=== PATIENT | female | born 1990 | race Caucasian/White ===

== ENCOUNTER → 2023-06-05 13:52 | Outpatient (CLI) | payer BC, SELFPAY ==
--- NOTE | ~2023-06-05 | US_ITS ---
EXAMINATION: US OB <= 14 weeks fetus DATE: 06/05/2023 14:12 INDICATION: Spotting complicating . First trimester. TECHNIQUE: Real-time transabdominal pelvic ultrasound was performed. COMPARISON: None. FINDINGS: The uterus measures 10.6 x 5.7 x 7.0 cm. There is an intrauterine gestational sac. A yolk sac is christine ntified. The crown rump length measures 2.3 cm, which correlates with an estimated gestational age of 9 weeks and 0 day(s) (+/-) 6 day(s). heart motion is identified measuring 172 beats pe r minute (bpm) by M-mode Doppler. The ovaries are not visualized. There is no free fluid in the pelvi s. IMPRESSION: 1. Single living intrauterine gestation with estimated date of delivery of 01/08/2024. Reviewed, dictated and finalized at location A. AND BEVERAGE ATTENDANT IMPRESSION: 1. Single living intrauterine gestation with estimated date of delivery of 12/22.
== END ==
PROVIDERS: PCP Advanced Practice Midwife; Visit Provider Advanced Practice Midwife
DX: O26.851 Spotting complicating pregnancy, first trimester (principal); Z3A.00 Weeks of gestation of pregnancy not specified
CPT/HCPCS: 76801

== ENCOUNTER → 2023-08-24 09:22 | Outpatient (CLI) | payer BC, SELFPAY ==
--- NOTE | ~2023-08-24 | US_ITS ---
EXAMINATION: US OB /maternal detail DATE: 08/24/2023 10:00 INDICATION: Encounter for screening, unspecified. TECHNIQUE: Real-time pelvic ultrasound was performed. COMPARISON: Ultrasound 06/05/2023 FINDINGS: There is a single living fetus in breech presentation. The placenta is anterior, 2.0 cm from the cer vix. The cervical length is 3.5 cm on transabdominal images, which is normal. heart rate is 161 beats per minute (bpm). The amniotic fluid volume is subjectively normal. The following biometric data were obtained: Biparietal diameter (BPD): 4.9 cm; head circumference (HC): 18.1 cm; abdominal circumference (AC): 15 .7 cm; femur length (FL): 3.1 cm. These measurements are concordant. Estimated weight is 344 g +/- 52 g, which correlates with the 37th percentile when 01/08/24 is u sed as estimated date of delivery. As single measurements, these parameters are each equal to the following estimated gestational ages: BPD: 20 weeks 6 days. HC: 20 weeks 4 days. AC: 20 weeks 6 days. FL: 19 weeks 4 days. estimated gestational age based solely on measurements from this exam is 20 weeks 3 days +/- 1 weeks 3 days. The cerebral ventricles, cerebellum, cisterna magna, nuchal fold, lip, and visualized portions of the spine are normal. The heart is normal. The diaphragm, stomach, kidneys, and bladder are normal. Ther e are two umbilical arteries to yield a 3-vessel cord. The cord insertion is normal. IMPRESSION: 1. Single living fetus in breech presentation. 2. Estimated weight is 344 g +/- 52 g, which correlates with the 37th percentile when 01/08/24 is used as estimated date of delivery. This date was set by ultrasound on 06/05/2023. 3. Normal anatomic survey. Reviewed, dictated and finalized at location A. [employer] SPEC IMPRESSION: 1. Single living fetus in breech presentation. 2. Estimated weight is 344 g +/- 52 g, which correlates with the 37th pe rcentile when 01/08/24 is used as estimated date of delivery. This date was set by ultrasound on 06/05/2023. 3. Normal anatomic survey.
== END ==
PROVIDERS: PCP Advanced Practice Midwife; Visit Provider Advanced Practice Midwife
DX: Z36.9 Encounter for antenatal screening, unspecified (principal); Z3A.20 20 weeks gestation of pregnancy
CPT/HCPCS: 76805

== ENCOUNTER → 2023-09-22 08:40 | Outpatient (CLI) | payer BC, SELFPAY ==
--- NOTE | ~2023-09-22 | US_ITS ---
EXAMINATION: US OB follow up DATE: 09/22/2023 09:01 INDICATION: Low-lying placenta during second trimester TECHNIQUE: Real-time ultrasound of the pelvis was performed. The interpreting radiologist was not pre sent for the study. COMPARISON: None. FINDINGS: There is a single living fetus in vertex presentation. The placenta is anterior which appears to ext end to within 5 mm of but not across the internal cervical os. heart rate is 146 beats per drew te (bpm). Cervical length measures approximately 4.7 cm with no funneling. The amniotic fluid bone is subjectively normal. IMPRESSION: 1. Single living fetus in vertex presentation with heart rate of 146 bpm. 2. Anterior placenta which is low lying extending to within 5 mm but not across the internal cervical os. Reviewed, dictated and finalized at location B. IN[employer]PAREL FOLDER
== END ==
PROVIDERS: PCP Advanced Practice Midwife; Visit Provider Advanced Practice Midwife
DX: O44.42 Low lying placenta NOS or without hemorrhage, second trimester (principal); Z3A.00 Weeks of gestation of pregnancy not specified
CPT/HCPCS: 76816

== ENCOUNTER 2023-10-19 08:45 | Outpatient (CLI) | payer BC, SELFPAY ==
--- NOTE | ~2023-10-19 | US_ITS ---
EXAMINATION: US OB limited DATE: 10/19/2023 09:01 INDICATION: Follow-up low-lying placenta during second trimester TECHNIQUE: Real-time ultrasound of the pelvis was performed. The interpreting radiologist was not pre sent for the study. COMPARISON: 09/22/2023 FINDINGS: There is a single living fetus in breech presentation. The placenta is anterior and 3.1 cm from the internal cervical os. The measured cervical length is 4 cm. cardiac activity and movement are noted. heart rate is 141 beats per minute (bpm). The amniotic fluid index is subj ectively normal. IMPRESSION: 1. Single living fetus in breech presentation. 2. Resolved low-lying placenta. Reviewed, dictated and finalized at location F.
== END 2023-10-19 08:46 ==
PROVIDERS: PCP Obstetrics & Gynecology Gynecology; Visit Provider Obstetrics & Gynecology Gynecology
DX: O32.1XX0 Maternal care for breech presentation, not applicable or unspecified (principal); Z3A.00 Weeks of gestation of pregnancy not specified
CPT/HCPCS: 76815

== ENCOUNTER 2023-12-14 10:17 | Outpatient (CLI) | payer BC, SELFPAY ==
--- NOTE | ~2023-12-14 | US_ITS ---
EXAMINATION: US OB follow up DATE: 12/14/2023 13:14 INDICATION: Size greater than dates. TECHNIQUE: Real-time ultrasound of the pelvis was performed. COMPARISON: Ultrasound 10/19/2023 FINDINGS: There is a single living fetus in breech presentation. The placenta is anterior. heart rate is 159 beats per minute (bpm). The amniotic fluid index is 8.0 cm, which is normal. The following biometric data were obtained: Biparietal diameter (BPD): 9.6 cm; head circumference (HC): 35.5 cm; abdominal circumference (AC): 33 .2 cm; femur length (FL): 7.0 cm. These measurements are discordant with high HC/AC ratio. Estimated weight is 3221 g +/- 483 g, which correlates with the 80th percentile when 01/08/24 is used as estimated date of delivery. As single measurements, these parameters are each equal to the following estimated gestational ages: BPD: 39 weeks 1 days. HC: 41 weeks 4 days. AC: 37 weeks 1 days. FL: 35 weeks 5 days. estimated gestational age based solely on measurements from this exam is 38 weeks 3 days +/- 2 weeks 5 days. IMPRESSION: 1. Single living fetus in breech presentation. 2. Estimated weight is 3221 g +/- 483 g, which correlates with the 80th percentile when 4 is used as estimated date of delivery. This date was set by ultrasound on 06/05/2023. 3. Discordant biometrics with high HC/AC ratio. Reviewed, dictated and finalized at location A. IMPRESSION: 1. Single living fetus in breech presentation. 2. Estimated weight is 3221 g +/- 483 g, which correlates with the 80th percentile when 01/08/24 is used as estimated date of delivery. This date was se t by ultrasound on 06/05/2023. 3. Discordant biometrics with high HC/AC ratio.
[2023-12-14 10:47] VITALS: BP 129/75; PULSE 88
[2023-12-14 10:50] VITALS: BMI 33.2
[2023-12-14 11:09] LABS: Basophils Percent Auto 0.3 % (0.2-1.2); Eosinophils Absolute Auto 0.2 K/mm3 (0-0.3); Eosinophils Percent Auto 1.7 % (0-4.4); Hematocrit 36.7 % (37.0-47.0); Hemoglobin 12.1 g/dL (12.0-15.0); Immature Granulocyte Absolute 0.06 K/mm3 (0.00-0.031); Immature Granulocyte Percent A 0.6 % (0-0.5); Lymphocytes Absolute Auto 1.99 K/mm3 (0.9-3.2); Lymphocytes Percent Auto 20.3 % (18.3-44.2); Mean Corpuscular Hemoglobin 33.2 pg (26-34); Mean Corpuscular Volume 100.8 fl (80-100); Mean Platelet Volume 11.3 fl (7.4-10.4); Monocytes Absolute Auto 0.7 K/mm3 (0.1-0.6); Monocytes Percent Auto 7.5 % (2.6-8.5); Neutrophils Absolute Auto 6.8 K/mm3 (1.3-6.7); Neutrophils Percent Auto 69.6 % (45.5-73.1); Platelet Count Result 217 k/mm3 (150-375); Red Blood Count 3.64 M/mm3 (4.2-5.4); Red Cell Distribution Width 12.2 % (11.5-14.5); White Blood Count 9.8 K/mm3 (4.5-10.0)
[2023-12-14 11:15] VITALS: BP 126/88; PULSE 96
[2023-12-14 11:19] LABS: Creatinine Urine 12.7 mg/dL; Total Protein Urine Random 14 mg/dL
[2023-12-14 11:20] LABS: Appearance Urine Clear (Clear); Bacteria Urine None Seen /hpf; Bilirubin Urine Negative (Negative); Blood Urine Negative (Negative); Color Urine Yellow (Yellow); Glucose Urine UA Negative (Negative); Ketones Urine Negative (Negative); Leukocyte Esterase Ur Trace LEU/UL (Negative); Need Manual Microscopic Reviewed; Nitrate Urine Negative (Negative); Non Pathogenic Casts 0-2; Protein Urine Negative (Negative); RBC Urine 0-2 /hpf (0-2); Squamous Epithelial Cell Urine None Seen /hpf (Few); Urobilinogen Urine 0.2 mg/dL (<2.0); WBC Urine 0-5 /hpf (0-3); pH Urine 6.5 (5.0-9.0)
[2023-12-14 11:21] LABS: Alanine Aminotransferase 22 U/L (6-35); Albumin Level 3.3 g/dL (3.5-5.1); Alkaline Phosphatase 141 U/L (38-126); Anion Gap 5 mmol/L (4-12); Aspartate Amino Transferase 28 U/L (14-36); Bilirubin,Total 0.6 mg/dL (0.2-1.3); Blood Urea Nitrogen 10 mg/dL (7-17); Calcium 8.8 mg/dL (8.4-10.2); Carbon Dioxide 21 mmol/L (22-30); Chloride 110 mmol/L (98-107); Estimated Glomerular Filt Rate > 60; Glucose 98 mg/dL (65-110); Potassium 3.7 mmol/L (3.4-5.0); Sodium 136 mmol/L (137-145); Uric Acid 4.4 mg/dL (2.5-7.5)
[2023-12-14 11:25] LABS: Specific Grav Ur 1.003 (1.001-1.035)
[2023-12-14 11:26] LABS: Add Urine Microscopic? YES
[2023-12-14 11:30] VITALS: BP 109/70; PULSE 84
--- NOTE | 2023-12-14 11:34 | PC.NURSE ---
Addendum entered by Franchesca Christina RN 12/14/23 18:34: This note should be times for 1334. Original Note: Dr. Bell informed of reactive NST, BP's, and lab results. Discussed U/S report. Order for discharge with pt to do 24 hr urine at home obtained.
[2023-12-14 12:00] VITALS: BP 120/72; PULSE 86
[2023-12-14 12:15] VITALS: BP 128/77; PULSE 90
[2023-12-14 12:30] VITALS: BP 126/73; PULSE 87
== END 2023-12-14 13:56 | disposition home or self-care (01) ==
LOC: ANHOBOP 10:23 → ANHOBPP 10:24
PROVIDERS: Visit Provider Obstetrics & Gynecology Gynecology
DX: O13.9 Gestational [pregnancy-induced] hypertension without significant proteinuria, unspecified trimester (principal); Z3A.00 Weeks of gestation of pregnancy not specified
CPT/HCPCS: 36415; 59025; 76816; 80053; 81001; 82570; 84156; 84550; 85025; 99199

== ENCOUNTER 2023-12-15 14:14 | Outpatient (NON) | payer BC, SELFPAY ==
[2023-12-15 14:18] VITALS: BMI 33.2
[2023-12-15 14:55] LABS: Collection Time Urine 24 HOURS
[2023-12-15 15:33] LABS: Total Volume 24 Hour Urine 4000 ml
[2023-12-15 15:34] LABS: Specific Gravity Ur 1.012
[2023-12-15 15:35] LABS: Patient Weight 218 Lbs; Total Volume 24 Hour Urine 4000 ml
[2023-12-15 15:42] LABS: Total Protein Urine 24 Hr 400 mg/24hr (28-141); Total Protein Urine Random 10 mg/dL
[2023-12-15 15:43] LABS: Creatinine Clearance Urine 174.4 ml/min (75-125)
== END 2023-12-15 14:15 | disposition home or self-care (01) ==
LOC: ANHOBOP 14:15
PROVIDERS: Visit Provider Obstetrics & Gynecology Gynecology
DX: R80.9 Proteinuria, unspecified (principal)
CPT/HCPCS: 81050; 82575; 84156

== ENCOUNTER 2023-12-21 09:52 | Outpatient (CLI) | payer BC, SELFPAY ==
[2023-12-21 10:26] LABS: Basophils Percent Auto 0.2 % (0.2-1.2); Eosinophils Absolute Auto 0.1 K/mm3 (0-0.3); Eosinophils Percent Auto 1.6 % (0-4.4); Hematocrit 38.8 % (37.0-47.0); Hemoglobin 12.7 g/dL (12.0-15.0); Immature Granulocyte Absolute 0.05 K/mm3 (0.00-0.031); Immature Granulocyte Percent A 0.6 % (0-0.5); Lymphocytes Absolute Auto 2.23 K/mm3 (0.9-3.2); Lymphocytes Percent Auto 25.3 % (18.3-44.2); Mean Corpuscular HGB Conc 32.7 g/dl (32-36); Mean Corpuscular Hemoglobin 33.4 pg (26-34); Mean Corpuscular Volume 102.1 fl (80-100); Mean Platelet Volume 11.6 fl (7.4-10.4); Monocytes Absolute Auto 0.8 K/mm3 (0.1-0.6); Monocytes Percent Auto 8.9 % (2.6-8.5); Neutrophils Absolute Auto 5.6 K/mm3 (1.3-6.7); Neutrophils Percent Auto 63.4 % (45.5-73.1); Platelet Count Result 230 k/mm3 (150-375); Red Cell Distribution Width 12.4 % (11.5-14.5); White Blood Count 8.8 K/mm3 (4.5-10.0)
[2023-12-21 10:40] LABS: Alanine Aminotransferase 24 U/L (6-35); Albumin Level 3.7 g/dL (3.5-5.1); Alkaline Phosphatase 153 U/L (38-126); Anion Gap 6 mmol/L (4-12); Aspartate Amino Transferase 31 U/L (14-36); Bilirubin,Total 0.6 mg/dL (0.2-1.3); Blood Urea Nitrogen 10 mg/dL (7-17); Calcium 9.1 mg/dL (8.4-10.2); Carbon Dioxide 23 mmol/L (22-30); Chloride 107 mmol/L (98-107); Estimated Glomerular Filt Rate > 60; Glucose 85 mg/dL (65-110); Potassium 4.4 mmol/L (3.4-5.0); Sodium 136 mmol/L (137-145); Uric Acid 4.7 mg/dL (2.5-7.5)
[2023-12-21 11:37] LABS: HIV 1/2 Ab P24 Ag Result Negative (Negative)
[2023-12-21 13:14] LABS: Rapid Plasma Reagin Non-Reactive (NonReactive)
== END 2023-12-21 09:53 | disposition home or self-care (01) ==
LOC: ANHLAB 09:55
PROVIDERS: Visit Provider Obstetrics & Gynecology Gynecology
DX: Z01.818 Encounter for other preprocedural examination (principal)
CPT/HCPCS: 36415; 80053; 84550; 85025; 86592; 86703; 86850; 86900; 86901; G0432

== ENCOUNTER 2023-12-22 05:24 | Inpatient (IN) | payer BC, SELFPAY ==
--- NOTE | 2023-12-21 14:04 | PM.IMHP ---
H&P: HPI History of Present Illness Date/Time: 12/21/23 14:04 Chief Complaint: breech Narrative: 33 yo G1 @37 5/7 wks tomorrow with preeclampsia. Patient with no complications until BP elevated last week. Labs ok, 24 hour urine protein 400 mg. is breech by u/s 12/19 therfore will proceed with csection on 12/21. labs: O+, RPR -, HIV -, HepBSAg -, GBS +, Rubella Immune. Review of Systems Review of Systems: not repeated day of surgery; patient states no changes in status Good FM, No PIH sx. 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 Family History Family History (Updated 12/14/23 @ 13:28 by Leslie Cui RN) Grandparent Breast cancer Social History Social History Alcohol intake: never Substance use: never Spiritual care concerns: No Meds Home Medications and Allergies Home Medications Medication Instructions Recorded Confirmed Type prenat.vits,erick,ovi-vgde-tyzel 1 tablet PO DAILY 12/14/23 12/14/23 History Allergies Allergy/AdvReac Type Severity Reaction Status Date / Time No Known Allergies Allergy Verified 12/14/23 13:25 Exam Const: General: healthy appearing and alert Orientation/consciousness: patient oriented x3 Resp: Effort & Inspection: normal respiratory effort GI: GI Palp: Yes Soft to palpation, No Tenderness to palpation present (GI) and Yes Other GI palpation findings present (Gravid FH 40) : External Female Exam: normal external appearance Speculum Exam - Vagina: normal appearance of the vagina and normal vaginal discharge Neuro: General: patient oriented x3 Assessment and Plan Assessment and plan (1) 37 weeks gestation of : Code(s): Z3A.37 - 37 weeks gestation of Status: Acute (2) Preeclampsia: Code(s): O14.90 - Unspecified pre-eclampsia, unspecified trimester Status: Acute Assessment and Plan: Plan to proceed with delivery (3) Breech presentation: Code(s): O32.1XX0 - Maternal care for breech presentation, not applicable or unspecified Status: Acute Assessment and Plan: Delivery via csection due to presentation
[2023-12-22] VITALS (42 sets, daily range): BP systolic 99–138; BP diastolic 60–88; PULSE 54–98; RESP 13–20; TEMP 36.2–37.2; O2SAT 82–100; BMI 32.7
--- NOTE | 2023-12-22 06:03 | WPDANESEPP ---
Anes - Eval Pre Procedure Procedure: Operation Date: 12/22/23 07:30 Proposed Procedures p Section - Natalia Bell MD Date/Time: 12/22/23 06:03 Surgeon: Arabella Preop Diagnosis: Breech, pre eclampsia Pre Op Diagnosis: C/S Patient Data Age: 33 Gender: F Height: Weight: Last Vital Signs Pulse 98 12/22/23 06:02 BP 131/80 12/22/23 06:02 Allergies Allergy/AdvReac Type Severity Reaction Status Date / Time No Known Allergies Allergy Verified 12/22/23 06:11 Home Medications Medication Instructions Recorded Confirmed Type prenat.vits,erick,ukt-xphe-norhn 1 tablet PO DAILY 12/14/23 12/22/23 History Patient hx anesthesia problems: none Family hx anesthesia problems: none Results Review: All pre-operative results and documents have been reviewed as part of the pre-operative evaluation. 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
--- NOTE | 2023-12-22 06:09 | LDADM ---
This patient, Mei Nieves, was admitted to Labor/Delivery/Recovery 120 on 12/22/23 at 05:24. Plans for labor, pain management and were discussed with patient. Patient/family oriented to hospital policies and general routines including ID bracelet, bed and alarms, visiting hours, pain management, procedures, bathroom and other care routines, personal items, smoking policy, room service/diet and guest tray routines, security routines, and visiting hours. Patient/Family are encouraged to report perceived risks to care and to ask questions if they do not understand what they are told or what they should do. See OBIX for further documentation.
[2023-12-22] MEDS: LACTATED RINGERS 1,000 ML 125 ML IV CONT (06:20)
[2023-12-22] MEDS: ACETAMINOPHEN 500 MG TABLET 1000 MG PO (06:20)
--- NOTE | 2023-12-22 07:00 | P.PNAN_ITS ---
Anes - Eval Final PreProcedure Day of Procedure 12/22/23 07:00 Patient weight: overweight Heart: regular rate and rhythm Lungs: clear to auscultation Airway: Mallampati scale class II Neurological: alert and oriented Last oral intake: >/= 8 hours ASA classification: III Emergent: no Anesthetic plan: proceed Anesthesia type and monitoring: regional spinal and standard monitoring Results Review: All pre-operative results and documents have been reviewed as part of the pre- operative evaluation. Informed Consent: The patient's anesthetic plan and its attendant risks and benefits were discussed with the patient/family/POA. Questions were solicited and answers provided to the satisfaction of the patient/family/POA.
[2023-12-22 07:35] LABS: HIV 1/2 Ab P24 Ag Result Negative (Negative)
[2023-12-22] MEDS: LACTATED RINGERS 1,000 ML 999 ML IV CONT (08:52)
[2023-12-22] MEDS: ONDANSETRON INJ 4 MG/2 ML VIAL IV PUSH (08:58)
--- NOTE | 2023-12-22 08:58 | WPDHPUPDATE1 ---
History and Physical Update Update Date/Time: 12/22/23 08:58 History and Physical has been reviewed, including an updated exam of the patient. There are NO changes in the patient's condition. Risks, benefits, and alternatives have been discussed and questions answered. Patient agrees to proceed with procedure. Bedside u/s just done and remains breech presentation. Proceed with csection.
[2023-12-22] MEDS: FAMOTIDINE 20 MG/2 ML VIAL IV PUSH (08:59)
[2023-12-22] MEDS: ceFAZolin 2 GM/D5W 50 ML 2 GM/50 ML BAG IVPB (09:07)
--- NOTE | 2023-12-22 09:51 | W.PM.OBCSD ---
OB - Delivery Note Procedure Delivery date: 12/22/23 Pre-op diagnosis: Breech Presentation, Preeclampsia w/o severe features and Other (Intrauterine at 37 and 4/7 weeks) Post-op Diagnosis: Same Delivery monitor: External FHT and External Uterine Procedure Performed: Primary Primary branch: low cervical, transverse Surgeon: Natalia Bell MD Anesthesia type: Spinal Description of Procedure/Findings: The patient is taken to the operating room after ultrasound confirmed breech presentation. The patient was placed in the dorsal supine position with a leftward tilt. Once anesthesia was deemed adequate a Pfannenstiel skin incision was made with a scalpel and carried down to the underlying layer fascia which was nicked in the midline. The incision was extended laterally using Gross scissors. [facility] was used to tent the fascia which then dissected off using sharp and blunt dissection. The rectus muscles were in the midline. The peritoneum was tented and entered with Metzenbaum scissors. The incision was extended with blunt traction. The bladder blade is placed and the vesicouterine peritoneum tented and entered with Metzenbaum scissors. The incision was extended laterally using the Metzenbaum scissor and the bladder flap created digitally. The bladder blade is replaced. The lower uterine segment was incised in a transverse fashion with the scalpel and extended laterally using blunt traction. The infant's breech was delivered through the incision to the scapula. The infant was rotated and the right arm delivered spontaneously. The was rotated and the left arm delivered spontaneously. The was extended on the abdomen and head delivered spontaneously. The delayed cord clamping was performed and thin the cord was clamped and cut and the handed to the waiting nursery nurse. The placenta was attempted to be removed by manual traction however the cord avulsed. The body of the placenta is removed manually. The uterus was cleared of all clots and debris and exteriorized. The uterine incision was closed using 0 Monocryl in a running locked fashion with the same suture used to imbricate. The cul-de-sac is irrigated and the uterus returned to the abdomen good hemostasis is noted. The gutters were irrigated. The incision was again inspected noted to be hemostatic. The fascia was closed using 0 Vicryl in a running fashion. Subcutaneous tissues are irrigated made hemostatic using Bovie cautery. Skin is closed using 4-0 Vicryl in a subcuticular fashion. Dermaflex was placed over the incision. Sponge, needle, and instrument counts are correct per the OR staff. Patient was given Ancef prior to the incision. Patient was taken to recovery in stable condition. Specimen: Yes ( placenta) Drains: Yes ( Moralez catheter) Packing: No Pathology: Yes ( placenta) Complications: No immediate complications Condition: Stable Disposition: Floor Baby Date of : 12/22/23 Weeks of gestation at delivery: 37 gender: Male Weight (pounds): 7 Weight (ounces): 8 presentation: vertex position: Right Sacrum Anterior Placenta delivery description: Manual Removal Cord Vessel Description: 3 Vessels and Delayed Cord Clamping score one minute: 9 score five minutes: 9
--- NOTE | 2023-12-22 09:56 | PM.OBDSVD ---
DS: Admitting Diagnosis Discharge Date 12/24/23 <Sukhjinder Cohen MD - Last Filed: 12/24/23 10:02> Admitting Diagnosis intrauterine at 37 and 4/7 weeks preeclampsia breech presentation <Natalia Bell MD - Last Filed: 01/08/24 09:40> DS: Discharge Diagnosis Discharge Diagnosis (1) Preeclampsia: Code(s): O14.90 - Unspecified pre-eclampsia, unspecified trimester <Natalia Bell MD - Last Filed: 01/08/24 09:40> Status: Acute <Natalia Bell MD - Last Filed: 01/08/24 09:40> (2) Delivery by section using transverse incision of lower segment of uterus: Code(s): O82 - Encounter for delivery without indication <Natalia Bell MD - Last Filed: 01/08/24 09:40> Status: Acute <Natalia Bell MD - Last Filed: 01/08/24 09:40> OB - DS: Summary OB Procedures : NST, PIH Mgmt and Ultrasound <Natalia Bell MD - Last Filed: 01/08/24 09:40> OB Procedures Intrapartum: low cervical, transverse <Natalia Bell MD - Last Filed: 01/08/24 09:40> OB Procedures: : None <Natalia Bell MD - Last Filed: 01/08/24 09:40> Peripartum Data Delivery Method: Section <Natalia Bell MD - Last Filed: 01/08/24 09:40> Procedures: Procedures Operation Date: 12/22/23 07:30 <No data on this case meets the specified criteria> <Natalia Bell MD - Last Filed: 01/08/24 09:40> complications: none <Natalia Bell MD - Last Filed: 01/08/24 09:40> Status at Discharge Functional status at discharge: independent ambulation <Natalia Bell MD - Last Filed: 01/08/24 09:40> Overall status at discharge: patient is progressing back to baseline <Natalia Bell MD - Last Filed: 01/08/24 09:40> Time Spent with Patient Time attestation: Total time spent providing and/or coordinating discharge services: <Natalia Bell MD - Last Filed: 01/08/24 09:40> DS: Data Data Completed and Pending Labs on day of discharge: Labs from last 24 hours 12/22/23 05:42 RPR Pending HIV 1&2 Ab/P24 Ag 4thGn Negative <Natalia Bell MD - Last Filed: 01/08/24 09:40> Discharge Plan Discharge Attending physician on discharge: Natalia Bell <Natalia Bell MD - Last Filed: 01/08/24 09:40> Natalia Bell <Sukhjinder Cohen MD - Last Filed: 12/24/23 10:02> Consulting providers: Boom Onofre Jr.; Dionte Nayak; Deisi Reis <Natalia Bell MD - Last Filed: 01/08/24 09:40> Discharging Clinician: Sukhjinder Cohen <Natalia Bell MD - Last Filed: 01/08/24 09:40> Sukhjinder Cohen <Sukhjinder Cohen MD - Last Filed: 12/24/23 10:02> Anticipated Discharge Date/Time: 12/25/23 09:59 <Natalia Bell MD - Last Filed: 01/08/24 09:40> Patient Disposition: Home, Self-Care <Natalia Bell MD - Last Filed: 01/08/24 09:40> Activity: may shower, may drive after 2 weeks and pelvic rest <Natalia Bell MD - Last Filed: 01/08/24 09:40> may shower, may drive after 2 weeks and pelvic rest <Sukhjinder Cohen MD - Last Filed: 12/24/23 10:02> Diet: regular <Natalia Bell MD - Last Filed: 01/08/24 09:40> regular <Sukhjinder Cohen MD - Last Filed: 12/24/23 10:02> Wound Care Instructions: incision open to air <Natalia Bell MD - Last Filed: 01/08/24 09:40> incision open to air <Sukhjinder Cohen MD - Last Filed: 12/24/23 10:02> Discharge Instructions: Education: Mom and Baby Guide Given to: Mother Follow-Up: Call your delivering provider's office for an appointment to be seen in: 1 Week Mom and baby should come to the [facility] for the follow-up appointment. Appointment Date/Time: December 25
[2023-12-22] MEDS: OXYTOCIN 30 UNITS/NS 500 ML 30 UNITS/500 ML BAG 125 UNITS IV CONT (10:38)
--- NOTE | 2023-12-22 12:06 | OBPPTRN ---
Patient transferred to post room #292 via stretcher. Support person present. Oriented to unit, room, information board, rooming in, admission packet and security measures. Patient verbalizes understanding.
[2023-12-22] MEDS: LIDOCAINE 5% PATCH 1 PATCH TRANSDERM (12:23)
[2023-12-22] MEDS: KETOROLAC 15 MG/ML VIAL (*BKC) IV PUSH ×2 (12:23→19:00)
[2023-12-22 12:34] LABS: Rapid Plasma Reagin Non-Reactive (NonReactive)
[2023-12-22] MEDS: ACETAMINOPHEN 325 MG TABLET 650 MG PO ×2 (13:13→18:58)
[2023-12-22] MEDS: SIMETHICONE 80 MG TAB.CHEW PO ×2 (13:14→19:01)
[2023-12-22] MEDS: DEXTROSE 5%/0.45% SOD CHL 1,000 ML 125 ML IV CONT (15:16)
[2023-12-22] MEDS: DOCUSATE SODIUM 100 MG CAPSULE PO (19:01)
[2023-12-23 00:18] VITALS: BP 114/66; PULSE 88; RESP 18; TEMP 36.8; O2SAT 97
[2023-12-23] MEDS: ACETAMINOPHEN 325 MG TABLET 650 MG PO ×4 (00:21→21:02)
[2023-12-23] MEDS: KETOROLAC 15 MG/ML VIAL (*BKC) IV PUSH ×2 (00:21→07:56)
[2023-12-23 04:11] VITALS: BP 112/77; PULSE 79; RESP 18; TEMP 36.4; O2SAT 99
[2023-12-23 05:19] LABS: Basophils Percent Auto 0.3 % (0.2-1.2); Eosinophils Absolute Auto 0.1 K/mm3 (0-0.3); Eosinophils Percent Auto 0.6 % (0-4.4); Hematocrit 29.6 % (37.0-47.0); Hemoglobin 9.7 g/dL (12.0-15.0); Immature Granulocyte Absolute 0.07 K/mm3 (0.00-0.031); Immature Granulocyte Percent A 0.6 % (0-0.5); Lymphocytes Absolute Auto 2.77 K/mm3 (0.9-3.2); Lymphocytes Percent Auto 23.9 % (18.3-44.2); Mean Corpuscular HGB Conc 32.8 g/dl (32-36); Mean Corpuscular Hemoglobin 33.4 pg (26-34); Mean Corpuscular Volume 102.1 fl (80-100); Mean Platelet Volume 11.9 fl (7.4-10.4); Monocytes Percent Auto 8.8 % (2.6-8.5); Neutrophils Absolute Auto 7.6 K/mm3 (1.3-6.7); Neutrophils Percent Auto 65.8 % (45.5-73.1); Platelet Count Result 185 k/mm3 (150-375); Red Cell Distribution Width 12.3 % (11.5-14.5); White Blood Count 11.6 K/mm3 (4.5-10.0)
--- NOTE | 2023-12-23 07:49 | WPDANLDPN2 ---
Anes-Prog Note L&D Date/Time: 12/23/23 07:49 Comfortable throughout: section Neuraxial method: spinal Epidural/Spinal procedure site: clean & non-tender Neuro status: Neuro function grossly intact. Cardiovascular status: normal Respiratory status: normal Airway patency: baseline Mental status: baseline Post-Op hydration status: normal Vital Signs: Last Vital Signs Temp 36.4 C 12/23/23 04:11 Pulse 79 12/23/23 04:11 Resp 18 12/23/23 04:11 BP 112/77 12/23/23 04:11 Pulse Ox 99 12/23/23 04:11 O2 Del Method Room Air 12/22/23 13:02 Pain score (VAS): 0/10 I/O: Intake & Output 12/22/23 12/22/23 12/23/23 15:59 23:59 07:59 Intake Total 950 1950 Output Total 0198 029 2259 Balance -1175 400 -100 Post-procedural complaints: none Patient feedback: Patient satisfied with anesthetic care.
--- NOTE | 2023-12-23 07:49 | WPDANLDNPN2 ---
Anes-Prog Note L&D-Neuraxial Date/Time: 12/23/23 07:49 Neuraxial medications: intrathecal PF morphine Opiod-related complaints: none Patient feedback: Patient satisfied with post-operative pain management.
[2023-12-23] MEDS: POLYSACCHARIDE IRON COMPLEX 150 MG CAPSULE PO ×2 (07:55→21:01)
[2023-12-23] MEDS: SIMETHICONE 80 MG TAB.CHEW PO ×3 (07:55→21:01)
[2023-12-23] MEDS: DOCUSATE SODIUM 100 MG CAPSULE PO ×2 (07:56→21:01)
[2023-12-23] MEDS: MULTIVIT/MIN/PREN/FOL AC/IRON TABLET 1 TAB PO (07:56)
[2023-12-23 08:05] VITALS: BP 134/85; PULSE 86; RESP 16; TEMP 36.5; O2SAT 100
--- NOTE | 2023-12-23 12:07 | PM.OBPNVD ---
OB - PN: Subj Subjective Date/time seen: 12/23/23 12:07 Narrative: Pain OK. Tolerating diet. Would like circumcision for son. OB - PN: Obj Data Labs 12/23/23 04:22 Labs: Laboratory Results - last 24 hr 12/22/23 12/23/23 05:42 04:22 WBC 11.6 H RBC 2.90 L Hgb 9.7 L D Hct 29.6 L MCV 102.1 H MCH 33.4 MCHC 32.8 RDW 12.3 Plt Count 185 MPV 11.9 H Immature Gran % (Auto) 0.6 H Neut % (Auto) 65.8 Lymph % (Auto) 23.9 [place] % (Auto) 8.8 H Eos % (Auto) 0.6 Baso % (Auto) 0.3 Lymph # (Auto) 2.77 [place] # (Auto) 1.0 H Eos # (Auto) 0.1 Baso # (Auto) 0.0 Abs Immat Gran (auto) 0.07 H Absolute Neuts (auto) 7.6 H Absolute Nucleated RBC 0.000 Nucleated RBC % 0.0 RPR Non-reactive OB - PN A/P Plan Comments: A: POD#1, doing well. P: Routine care. Reviewed circ. Exam Narrative: AVSS I/O OK ABD soft, nontender, fundus firm. Incision c/d/i. EXT nontender
[2023-12-23 13:00] VITALS: BP 127/75; PULSE 90
[2023-12-23] MEDS: IBUPROFEN 600 MG TABLET PO ×2 (14:08→21:02)
[2023-12-23 17:00] VITALS: BP 129/85; PULSE 102
--- NOTE | 2023-12-23 18:30 | PC.NURSE ---
Educated patient on importance of calling out prior to feeding for blood glucose checks, patient verbalized understanding at this time.
[2023-12-23 18:50] VITALS: BP 126/76; PULSE 88; RESP 18; TEMP 36.6; O2SAT 100
[2023-12-24 01:00] VITALS: BP 130/76; PULSE 84
[2023-12-24 05:00] VITALS: BP 125/82; PULSE 94; RESP 18; TEMP 36.4; O2SAT 100
[2023-12-24] MEDS: ACETAMINOPHEN 325 MG TABLET 650 MG PO (05:05)
[2023-12-24] MEDS: IBUPROFEN 600 MG TABLET PO (05:05)
[2023-12-24 07:30] VITALS: BP 118/77; PULSE 81; RESP 16; TEMP 36.6; O2SAT 100
[2023-12-24] MEDS: MULTIVIT/MIN/PREN/FOL AC/IRON TABLET 1 TAB PO (09:00)
[2023-12-24] MEDS: POLYSACCHARIDE IRON COMPLEX 150 MG CAPSULE PO (09:01)
--- NOTE | 2023-12-24 10:01 | PM.OBPNVD ---
OB - PN: Subj Subjective Date/time seen: 12/24/23 10:01 Narrative: Pain OK. Tolerating diet. Would like to go home. OB - PN: Obj Data Labs 12/23/23 04:22 OB - PN A/P Plan Comments: A: POD#2, doing well. P: Home to f/u 4 weeks. Exam Narrative: AVSS ABD soft, nontender, fundus firm. Incision c/d/i. EXT nontender
--- NOTE | 2023-12-24 10:28 | PC.NURSE ---
Patient viewed the discharge video Mother & Baby Care, The First Two Weeks . Patient was given the opportunity and encouraged to ask questions. Patient verbalized understanding of information shared and has been given the mother/baby guide for home reference.
[2023-12-26 09:21] VITALS: BP 121/89; PULSE 82; RESP 18; TEMP 36.9; O2SAT 100
== END 2023-12-24 10:51 | disposition home or self-care (01) | DRG 788 ==
LOC: ANHLDR 10:00 → ANHOB2 12-24 10:05 → ANHLDR 12-26 09:12 → ANHOB2 12-26 09:12
PROVIDERS: Admitting Provider Obstetrics & Gynecology Gynecology; Visit Provider Obstetrics & Gynecology
PROC: 10D00Z1 Extraction of Products of Conception, Low, Open Approach (ICD-10-PCS; CPT 59514; principal; 2023-12-22 07:30)
DX: O32.1XX0 Maternal care for breech presentation, not applicable or unspecified (principal); O99.824 Streptococcus B carrier state complicating childbirth; O14.04 Mild to moderate pre-eclampsia, complicating childbirth; Z3A.37 37 weeks gestation of pregnancy; Z37.0 Single live birth
CPT/HCPCS: 36415; 85025; 86592; 86703; 88307; A9270; G0432; J0690; J1100; J1885; J2274; J2371; J2405; J2590; J7120